=== PATIENT | male | born 1975 | race Caucasian/White ===

== ENCOUNTER 2017-07-26 08:25 | Emergency (ER) | payer MEDICAID ==
[~2017-07-26] VITALS: Ht 172.7 cm; Wt 90.0 kg
[~2017-07-26 08:25] MED LIST: GLUCTAB; LORTA5 PO; NAPR250T57 PO
[2017-07-26] MEDS ORDERED: SODIUM CHLOR 0.9% 1000 ML INJ 1,000 ML IV SCH (08:50)
[2017-07-26] MEDS ORDERED: METF500T4 PO (08:53)
[2017-07-26] MEDS ORDERED: BP PILL PO (08:53)
[2017-07-26] MEDS ORDERED: NAPR500 PO (08:53)
[2017-07-26] MEDS ORDERED: CHOLESTEROL PILL PO (08:53)
[2017-07-26] MEDS ORDERED: LIDOCAINE 2% JELLY 30 ML TUBE TOPICAL ONE (09:00)
[2017-07-26] MEDS ORDERED: SODIUM CHLORIDE 0.9% FLUSH 10 ML FLUSH IV FLUSH PRN (09:00)
[2017-07-26 09:21] LABS: AUTOMATED NEUTROPHIL # 5.5 TH/MM3 (1.8-7.7); BASOPHIL # 0.1 TH/MM3 (0-0.2); BASOPHIL % 0.9 % (0.0-2.0); EOSINOPHIL # 0.7 TH/MM3 (0-0.4); EOSINOPHIL % 7.1 % (0.0-4.0); HEMATOCRIT 41.8 % (39.0-51.0); HEMOGLOBIN 14.9 GM/DL (13.0-17.0); LYMPH % 27.2 % (9.0-44.0); LYMPHOCYTE # 2.6 TH/MM3 (1.0-4.8); MEAN CELL VOLUME 86.8 FL (80.0-100.0); MEAN CORPUSCULAR HGB CONC 35.7 % (32.0-36.0); MEAN PLATELET VOLUME 9.3 FL (7.0-11.0); MONO % 8.7 % (0.0-8.0); MONOCYTE # 0.8 TH/MM3 (0-0.9); NEUT % 56.1 % (16.0-70.0); PLATELET COUNT 204 TH/MM3 (150-450); RED BLOOD COUNT 4.81 MIL/MM3 (4.50-5.90); RED CELL DISTRIBUTION WIDTH 12.1 % (11.6-17.2); WHITE BLOOD COUNT 9.7 TH/MM3 (4.0-11.0)
[2017-07-26 09:30] LABS: PROTHROMBIN TIME - PATIENT 9.7 SEC (9.8-11.6)
[2017-07-26 09:43] LABS: ALT (GPT) 69 U/L (12-78)
[2017-07-26 09:45] LABS: ALKALINE PHOSPHATASE 143 U/L (45-117); TOTAL BILIRUBIN ADULT 0.4 MG/DL (0.2-1.0); TOTAL PROTEIN 8.3 GM/DL (6.4-8.2)
[2017-07-26 09:46] LABS: ALBUMIN 3.6 GM/DL (3.4-5.0); AST (GOT) 30 U/L (15-37); BICARBONATE 24.6 MEQ/L (21.0-32.0); BLOOD UREA NITROGEN 10 MG/DL (7-18); CALCIUM 8.7 MG/DL (8.5-10.1); CHLORIDE 102 MEQ/L (98-107); CREATININE 0.67 MG/DL (0.60-1.30); GLOMERULAR FILTRATION RATE 131 ML/MIN (>89); GLUCOSE,RANDOM 241 MG/DL (74-106); SODIUM (NA) 136 MEQ/L (136-145)
[2017-07-26] MEDS ORDERED: LIDOCAINE 2% JELLY 5 ML TUBE TOPICAL ONE (10:00)
[2017-07-26] MEDS ORDERED: IOHEXOL 350 MG/ML 10 ML VIAL (for RAD DIAG) IVCONTRAST ONE (10:26)
--- NOTE | 2017-07-26 10:43 | RADRPT ---
EXAM DATE/TIME: 07/26/2017 10:11 1 [place] COMPARISON: No previous studies available for comparison. INDICATIONS : Abdominal pain IV CONTRAST: 96 cc Omnipaque 350 (iohexol) IV ORAL CONTRAST: No oral contrast ingested. RADIATION DOSE: 13.42 CTDIvol (mGy) MEDICAL HISTORY : Hypertension. diabetes SURGICAL HISTORY : None. ENCOUNTER: Initial ACUITY: 1 day PAIN SCALE: 10/10 LOCATION: Rectal TECHNIQUE: Volumetric scanning of the abdomen and pelvis was performed. Using automated exposure control and ad justment of the mA and/or kV according to patient size, radiation dose was kept as low as reasonably achievable to obtain optimal diagnostic quality images. DICOM format image data is available electro nically for review and comparison. FINDINGS: LOWER LUNGS: The visualized lower lungs are clear. LIVER: Homogeneous density without lesion. There is no dilation of the biliary tree. No calcified gallston es. There is moderate hepatic steatosis. SPLEEN: Normal size without lesion. PANCREAS: Within normal limits. KIDNEYS: Normal in size and shape. There is no mass, stone or hydronephrosis. ADRENAL GLANDS: Within normal limits. VASCULAR: There is no aortic aneurysm. BOWEL/MESENTERY: The stomach, small bowel, and colon demonstrate no acute abnormality. There is no free intraperitone al air or fluid. There is a normal appendix. No oral contrast was given limiting the sensitivity of t he exam. ABDOMINAL WALL: Within normal limits. RETROPERITONEUM: There is no lymphadenopathy. BLADDER: No wall thickening or mass. REPRODUCTIVE: Within normal limits. INGUINAL: There is no lymphadenopathy or hernia. MUSCULOSKELETAL: Within normal limits for patient age. CONCLUSION: 1. Unremarkable bowel gas pattern with no inflammatory change or obstruction. There is a normal appen jewels. 2. Moderate hepatic steatosis. 3. Unremarkable gallbladder. Fredo Baker MD on July 26, 2017 at 10:38 Board Certified Radiologist. This report was verified electronically.
[2017-07-26 10:44] VITALS: BP 137/81; PULSE 90; RESP 16; O2SAT 98
[2017-07-26] MEDS ORDERED: DOCU100C15 PO (11:43)
[2017-07-26] MEDS ORDERED: LIDO2GEL11 TOPICAL (11:43)
--- NOTE | 2017-07-26 11:43 | PD ---
HPI Chief Complaint: Bleeding Time Seen by Provider: 08:43 Travel History International Travel<30 days: No Contact w/Intl Traveler<30days: No Traveled to known affect area: No History of Present Illness HPI Patient is a 41-year-old male who comes in complaining of rectal pain and bleeding. He says this is been going on for the past week, but got worse, so he came in. He denies any abdominal pain. He denies any nausea or vomiting. He denies any dizziness, chest pain, shortness of breath. He says nothing seems to make the pain better. He says he had a normal bowel movement yesterday. PFSH Past Medical History High Cholesterol: Yes Diabetes: Yes Patient Takes Glucophage: Yes Herniated Disk: Yes Hypertension: Yes Tetanus Vaccination: Unknown Influenza Vaccination: No Past Surgical History Other Surgery: Yes (PROCEDURE FOR RECTAL BLEEDING) Social History Alcohol Use: Yes (SOCIALLY) Tobacco Use: Yes (1 PPD) Substance Use: No Allergies-Medications (Allergen,Severity, Reaction): Coded Allergies: No Known Allergies (Unverified Allergy, Unknown, 07/26/17) Reported Meds & Prescriptions Reported Meds & Active Scripts Active Docusate Sodium 100 Mg Cap 100 Mg PO BID PRN Lidocaine Topical (Lidocaine HCl) 2 % Jel 1 Applic TOPICAL QID 5 Days Reported [Cholesterol Pill] 1 Tab PO DAILY [Bp Pill] 1 Tab PO DAILY Naprosyn (Naproxen) 500 Mg Tab 250 Mg PO BID Metformin ER (Metformin HCl) 500 Mg Edgar 500 Mg PO BID With evening meal Review of Systems Except as stated in HPI: all other systems reviewed are Neg General / Constitutional: No: Fever, Chills HENT: No: Headaches, Lightheadedness Cardiovascular: No: Chest Pain or Discomfort Respiratory: No: Shortness of Breath Gastrointestinal: No: Nausea, Vomiting, Abdominal Pain Genitourinary: No: Dysuria Musculoskeletal: No: Myalgias, Edema Skin: No Rash, No Change in Pigmentation Neurologic: No: Weakness, Dizziness Physical Exam Narrative GENERAL: Awake and alert, in no acute distress. SKIN: Focused skin assessment warm/dry. No wounds or signs of infection. HEAD: Atraumatic. Normocephalic. EYES: Pupils equal and round. No scleral icterus. No conjunctival pallor ENT: Mucous membranes pink and moist. NECK: Trachea midline. No JVD. CARDIOVASCULAR: Regular rate and rhythm. No murmur appreciated. RESPIRATORY: No accessory muscle use. Clear to auscultation. Breath sounds equal bilaterally. GASTROINTESTINAL: Abdomen soft, non-tender, nondistended. RECTAL: Exam performed in the presence of a nurse. Tenderness to the posterior portion of the rectum, possible small hemorrhoid. No bleeding, stool is negative for occult blood. MUSCULOSKELETAL: No obvious deformities. No clubbing. No cyanosis. No edema. NEUROLOGICAL: Awake and alert. No obvious cranial nerve deficits. Motor grossly within normal limits. Normal speech. PSYCHIATRIC: Appropriate mood and affect; insight and judgment normal. Data Data Last Documented VS Vital Signs Date Time Temp Pulse Resp B/P (MAP) Pulse Ox O2 Delivery O2 Flow Rate FiO2 07/26/17 12:02 80 14 130/85 (100) 99 Room Air Orders Orders Complete Blood Count With Diff (07/26/17 08:50) Comprehensive Metabolic Panel (07/26/17 08:50) Prothrombin Time / Inr (Pt) (07/26/17 08:50) Act Partial Throm Time (Ptt) (07/26/17 08:50) Ct Abd/Pel W Iv Contrast(Rout) (07/26/17 08:50) Iv Access Insert/Monitor (07/26/17 08:50) Ecg Monitoring (07/26/17 08:50) Oximetry (07/26/17 08:50) Sodium Chlor 0.9% 1000 Ml Inj (Ns 1000 M (07/26/17 08:50) Sodium Chloride 0.9% Flush (Ns Flush) (07/26/17 09:00) Lidocaine 2% Jelly (Xylocaine 2% Jelly) (07/26/17 09:00) Lidocaine 2% Jelly (Xylocaine 2% Jelly) (07/26/17 10:00) Iohexol 350 Inj (Omnipaque 350 Inj) (07/26/17 10:26) Ed Discharge Order (07/26/17 11:43) Labs Laboratory Tests Test 07/26/17 09:00 White Blood Count 9.7 TH/MM3 Red Blood Count 4.81 MIL/MM3 Hemoglobin 14.9 GM/DL Hematocrit 41.8 % Mean Corpuscular Volume 86.8 FL Mean Corpuscular Hemoglobin 31.0 PG Mean Corpuscular Hemoglobin Concent 35.7 % Red Cell Distribution Width 12.1 % Platelet Count 204 TH/MM3 Mean Platelet Volume 9.3 FL Neutrophils (%) (Auto) 56.1 % Lymphocytes (%) (Auto) 27.2 % Monocytes (%) (Auto) 8.7 % Eosinophils (%) (Auto) 7.1 % Basophils (%) (Auto) 0.9 % Neutrophils # (Auto) 5.5 TH/MM3 Lymphocytes # (Auto) 2.6 TH/MM3 Monocytes # (Auto) 0.8 TH/MM3 Eosinophils # (Auto) 0.7 TH/MM3 Basophils # (Auto) 0.1 TH/MM3 CBC Comment DIFF FINAL Differential Comment Prothrombin Time 9.7 SEC Prothromb Time International Ratio 1.0 RATIO Activated Partial Thromboplast Time 23.8 SEC Blood Urea Nitrogen 10 MG/DL Creatinine 0.67 MG/DL Random Glucose 241 MG/DL Total Protein 8.3 GM/DL Albumin 3.6 GM/DL Calcium Level 8.7 MG/DL Alkaline Phosphatase 143 U/L Aspartate Amino Transf (AST/SGOT) 30 U/L Alanine Aminotransferase (ALT/SGPT) 69 U/L Total Bilirubin 0.4 MG/DL Sodium Level 136 MEQ/L Potassium Level 3.5 MEQ/L Chloride Level 102 MEQ/L Carbon Dioxide Level 24.6 MEQ/L Anion Gap 9 MEQ/L Estimat Glomerular Filtration Rate 131 ML/MIN MDM Medical Decision Making Medical Screen Exam Complete: Yes Emergency Medical Condition: Yes Medical Record Reviewed: Yes Differential Diagnosis GI bleed versus hemorrhoid versus anal fissure Narrative Course Patient is a 41-year-old male who comes in complaining of rectal pain and bleeding. Exam shows possible small hemorrhoid. Have a steppage, labs sent. Labs show a hemoglobin of 14. CT abdomen pelvis performed shows no acute abnormalities. Patient given lidocaine jelly and reports feeling relief of his pain. He is advised to continue to use the lidocaine as needed. Advised to follow-up with gastroenterology for colonoscopy. Advised to return anytime for any worsening symptoms. Diagnosis Primary Impression: Hemorrhoid Qualified Codes: K64.9 - Unspecified hemorrhoids Referrals: Singh Gomez MD call for appointment Patient Instructions: General Instructions, Hemorrhoids (ED) Additional Instructions: Follow up with gastroenterology. Use Lidocaine jelly for pain relief. Return at any time for any worsening symptoms. Scripts Docusate Sodium (Docusate Sodium) 100 Mg Cap 100 MG PO BID Y for CONSTIPATION, #60 CAP 0 Refills Prov: Christelle Torres MD 07/26/17 Lidocaine Topical (Lidocaine Topical) 2 % Jel 1 APPLIC TOPICAL QID for Pain Management for 5 Days, GM 0 Refills Prov: Christelle Torres MD 07/26/17 Disposition: 01 DISCHARGE HOME Condition: Stable Christelle Torres MD Jul 26, 2017 11:43
[2017-07-26 12:02] VITALS: BP 130/85; PULSE 80; RESP 14; O2SAT 99
== END 2017-07-26 12:03 | disposition home or self-care (01) ==
LOC: NEPC 08:25
DX: K64.9 Unspecified hemorrhoids (principal); K76.0 Fatty (change of) liver, not elsewhere classified; I10 Essential (primary) hypertension; E78.00 Pure hypercholesterolemia, unspecified; E11.9 Type 2 diabetes mellitus without complications; F17.210 Nicotine dependence, cigarettes, uncomplicated; Z79.84 Long term (current) use of oral hypoglycemic drugs; Z79.899 Other long term (current) drug therapy
CPT/HCPCS: 74177; 80053; 85025; 85610; 85730; 96360; 99285; J7030; Q9967